=== PATIENT | female | born 1960 | race Caucasian/White ===

== ENCOUNTER → 2019-07-29 08:23 | Outpatient (BNVA) | payer OTHER, SELFPAY | PROVIDERS: Family Provider Registered Nurse; PCP Registered Nurse; Referring Provider Registered Nurse; Visit Provider Podiatrist Foot & Ankle Surgery | DX: M79.671 Pain in right foot (principal); M79.672 Pain in left foot; M77.8 Other enthesopathies, not elsewhere classified | CPT/HCPCS: 73620; 73630 ==

== ENCOUNTER 2019-08-05 06:55 | Outpatient (CLI) | payer OTHER, SELFPAY ==
--- NOTE | 2019-08-05 07:15 | US_ITS ---
WS: [id number] US soft tissue/extremity [id number] REASON FOR EXAM: Rule out mortons neuroma 3rd intermetatarsal space, right FINDINGS: In the area of the third interspace there is a nodular density in the subcutaneous area wilbur n neuroma is in the differential diagnosis versus plantar nodule. The remaining plantar surface of foot was normal. US/US soft tissue/extremity [id number] IMPRESSION: A density is seen with the third metatarsal tarsal area
== END 2019-08-05 06:56 | disposition home or self-care (01) ==
LOC: US 06:58
PROVIDERS: Family Provider Registered Nurse; PCP Registered Nurse; Visit Provider Podiatrist Foot & Ankle Surgery
DX: M79.671 Pain in right foot (principal)
CPT/HCPCS: 76882

== ENCOUNTER → 2019-09-04 09:04 | Outpatient (BNVA) | payer OTHER, SELFPAY | PROVIDERS: Family Provider Registered Nurse; PCP Registered Nurse; Visit Provider Otolaryngology | DX: R05 Cough (principal); J34.2 Deviated nasal septum; J34.3 Hypertrophy of nasal turbinates; J30.9 Allergic rhinitis, unspecified; R09.82 Postnasal drip; R49.0 Dysphonia | CPT/HCPCS: 96372; 99204; 99214; J3301 ==

== ENCOUNTER → 2020-09-06 10:51 | Outpatient (BNVA) | payer OTHER, SELFPAY | PROVIDERS: Family Provider Registered Nurse; PCP Registered Nurse; Visit Provider Internal Medicine Rheumatology | DX: M18.12 Unilateral primary osteoarthritis of first carpometacarpal joint, left hand (principal) | CPT/HCPCS: 20600; J1030 ==

== ENCOUNTER 2020-09-29 13:04 | Outpatient (CLI) | payer OTHER, SELFPAY ==
--- NOTE | 2020-09-29 13:00 | CT_ITS ---
WS: [id number] CT LUMBAR SPINE TECHNIQUE: Noncontrast CT of the lumbar spine with coronal and sagittal reformatted images. CLINICAL INFORMATION: Bilateral LBP with left leg numbness COMPARISON: None. DLP: All CT scans at [facility] use at least one of these dose optimization techniques: automat ed exposure control; mA and/or kV adjustment per patient size (includes targeted exams where dose is matched to clinical indication); or iterative reconstruction. FINDINGS: Mild lumbar curve. No acute compression. No high-grade central canal stenosis. Disc space narrowing w orse at L3-L4 and L4-L5 with end plate sclerosis and subchondral cystic change. No acute appearing co mpression fractures. Disc bulging worse at L3-L4 and L4-L5. L1-L2: Normal. L2-L3: Mild annular bulging with moderate central canal stenosis. Narrowing of the subarticular reces s bilaterally. Moderate facet arthropathy with ligamentum flavum hypertrophy. Mild bilateral left gre ater than right foraminal narrowing. L3-L4: Mild disc bulging with moderate to severe central canal stenosis. Moderate facet arthropathy l igamentum flavum hypertrophy. Right foraminal protrusion with moderate to severe right foraminal narr owing. Impingement on the exiting right L3 nerve root. Mild left foraminal narrowing. L4-L5: Mild disc bulging with severe central canal stenosis. Impingement traversing L5 nerve roots bi laterally. Moderate facet arthropathy and ligament flavum hypertrophy. Moderate to severe left and mo derate right foraminal narrowing. Impingement on the exiting L4 nerve roots bilaterally. L5-S1: Mild annular bulging with slight effacement of the ventral thecal sac. Spinal canal and forame n are patent. Adrenal glands are normal. Cholecystectomy clips. Visualized pelvic bony structures: Normal. Paravertebral soft tissues: Normal. CT/CT lumbar spine wo con* [id number] IMPRESSION: 1. Mild lumbar curve. No acute compression. Disc bulging worse at L3-L4 L4-L5. 2. Moderate to severe central canal stenosis L3-4 and severe central canal gaetano nosis L4-5 due to disc bulging with facet arthropathy and ligamentum flavum hyp ertrophy. 3. Moderate to severe right L3-L4 and bilateral L4-5 left greater than right f oraminal narrowing 4. Moderate central canal stenosis L1-2 due to disc bulging with facet arthrop athy and ligament flavum hypertrophy.
== END 2020-09-29 13:05 | disposition home or self-care (01) ==
PROVIDERS: PCP Family Medicine Adult Medicine; Visit Provider Family Medicine Adult Medicine
DX: M46.1 Sacroiliitis, not elsewhere classified (principal); M19.90 Unspecified osteoarthritis, unspecified site; R20.0 Anesthesia of skin
CPT/HCPCS: 72131

== ENCOUNTER → 2020-10-04 08:30 | Outpatient (BNVA) | payer OTHER, SELFPAY | PROVIDERS: PCP Family Medicine Adult Medicine; Referring Provider Family Medicine Adult Medicine; Visit Provider Orthopaedic Surgery | DX: M48.061 Spinal stenosis, lumbar region without neurogenic claudication (principal); M47.816 Spondylosis without myelopathy or radiculopathy, lumbar region; M43.16 Spondylolisthesis, lumbar region | CPT/HCPCS: 72110 ==

== ENCOUNTER 2020-10-04 09:16 | Outpatient (CLI) | payer OTHER, SELFPAY ==
[2020-10-04 09:43] LABS: Hematocrit 42.1 % (37.0-47.0); Hemoglobin 12.9 g/dL (11.5-15.3); Mean Corpuscular HGB Conc 30.6 g/dL (30.0-36.0); Mean Corpuscular Hemoglobin 26.8 pg (28.0-34.0); Mean Corpuscular Volume 87.3 fL (81-99); Mean Platelet Volume 10.1 fL (7.4-10.4); Platelet Count 284 10^3/cmm (130-400); Red Blood Count 4.82 10^6/uL (4.1-5.3); White Blood Count 3.8 10^3/uL (4.0-10.0)
[2020-10-04 10:48] LABS: Erythrocyte Sedimentation Rate 11 mm/hr (0-15)
[2020-10-04 12:45] LABS: Total Cells Counted 100 (0-100)
[2020-10-04 12:49] LABS: Absolute Segmented Neutrophil 2.2 10/cmm (1.6-7.1); Segmented Neutrophils 57 %
[2020-10-04 12:50] LABS: Absolute Eosinophils 0.3 10^3/cmm (0.0-0.7); Absolute Neutrophil 2.2 10^3/cmm (1.4-6.5); Eosinophils 8 %; Lymphocytes 28 %; Lymphocytes Absolute 1.1 10^3/cmm (1.2-3.4); Monocytes Absolute 0.2 10^3/cmm (0.1-0.6); Platelet Estimate Normal (Normal)
== END 2020-10-04 09:17 | disposition home or self-care (01) ==
PROVIDERS: PCP Family Medicine Adult Medicine; Visit Provider Orthopaedic Surgery
DX: M48.061 Spinal stenosis, lumbar region without neurogenic claudication (principal); M46.40 Discitis, unspecified, site unspecified
CPT/HCPCS: 85007; 85027; 85651; 87040

== ENCOUNTER 2020-10-06 13:19 | Outpatient (CLI) | payer OTHER, SELFPAY ==
--- NOTE | 2020-10-06 13:45 | MR_ITS ---
WS: [id number] MRI LUMBAR SPINE NONCONTRAST TECHNIQUE: Sagittal T1, T2 and STIR imaging. Axial T1 and T2 imaging. CLINICAL INFORMATION: M48.061 - Spinal stenosis, lumbar region without neurogenic claudication COMPARISON: CT lumbar September 29, 2020 FINDINGS: Mild lumbar curve. No acute compression. Degenerative disease worse at L3-L4 and L4-L5. Disc desiccat ion at L4-5 with endplate degenerative changes and endplate edema. Subchondral endplate erosions at L 4-5 as seen on the recent CT. Findings can be seen with advanced degenerative changes as well as disc itis. Recommend correlation for infection. No evidence of paravertebral edema or epidural abscess. Se giancarlo central canal stenosis L4-5 due to disc bulging with facet arthropathy and ligamentum flavum hyp ertrophy. L1-L2: Normal. L2-L3: Mild disc bulging with mild central canal stenosis. Impingement on the right greater than left subarticular recess. Mild facet arthropathy. Foramen are patent. L3-L4: Right eccentric disc bulging impinges the traversing right L4 nerve root and exiting right L3 nerve root with moderate right foraminal narrowing. Left foramen is patent. Moderate central canal st enosis. Moderate facet arthropathy with ligamentum flavum hypertrophy. L4-L5: Disc desiccation with endplate edema and endplate degenerative changes described above. Disc b ulging results in severe central canal stenosis with moderate facet arthropathy and ligamentum flavum hypertrophy. Impingement on the traversing left L5 nerve root. Moderate left and mild right foramina l narrowing. L5-S1: Minimal annular bulging with osteophytic ridging. Spinal canal and foramen are patent. Mild fa cet arthropathy. Small right renal cyst. MR/MR lumbar spine wo con* [id number] IMPRESSION: 1. Mild lumbar curve. No acute compression. 2. Disc desiccation L4-5 with endplate edema and subchondral cystic changes. F indings most likely due to advanced degenerative disc disease but can also be s een with discitis. Recommend correlation for infection. No paravertebral edema or paravertebral abscess. 3. Severe central canal stenosis L4-5 due to disc bulging with facet arthropat hy and ligamentum flavum hypertrophy. Impingement traversing left L5 nerve root . 4. Mild central canal stenosis L2-3 and moderate central canal stenosis L3-4. 5. Mild to moderate bony foraminal narrowing worse at right L3-4 and left L4-5 .
== END 2020-10-06 13:20 | disposition home or self-care (01) ==
PROVIDERS: PCP Family Medicine Adult Medicine; Visit Provider Orthopaedic Surgery
DX: M48.061 Spinal stenosis, lumbar region without neurogenic claudication (principal)
CPT/HCPCS: 72148

== ENCOUNTER → 2020-10-19 08:20 | Outpatient (BNVA) | payer OTHER, SELFPAY | PROVIDERS: PCP Family Medicine Adult Medicine; Visit Provider Orthopaedic Surgery | DX: Z20.822 Contact with and (suspected) exposure to COVID-19 (principal) | CPT/HCPCS: 87635 ==

== ENCOUNTER 2020-10-24 05:50 | Day surgery (SDC) | payer OTHER, SELFPAY ==
[2020-10-21 14:10] VITALS: BMI 26.5
[2020-10-24] VITALS (12 sets, daily range): BP systolic 127–170; BP diastolic 64–104; PULSE 61–78; RESP 14–20; TEMP 36.5–37.1; O2SAT 93–100
--- NOTE | 2020-10-24 | XR_ITS ---
WS: [id number] C-ARM RADIOGRAPHS LUMBAR SPINE; 6 IMAGES HISTORY: ASPEN SINJarett COMPARISON: 10/04/2020 Intraoperative imaging during spinal decompression. Multiple images are submitted with localizing dev ices over the lumbar spine. XR/XR lumbar spine 1V port [id number] IMPRESSION: Intraoperative imaging during posterior lumbar decompression.
--- NOTE | 2020-10-24 | SCC_ITS ---
Procedure Done: 1. L2/3 laminectomy with partial facetectomy 2. L3/4 laminectomy with partial facetectomy 3. L4/5 laminectomy with partial facetectomy 43.4 seconds of fluoroscopic guidance, for a cumulative dose of 11.81 mGy, was provided to Dr. Zhou by the radiology department. C-arm images of the lumbar spine were saved for the patient's permanent record. [facility], [place]
[2020-10-24] MEDS: sodium chloride 0.9% 1,000 ML 30 ML IV (06:25)
--- NOTE | 2020-10-24 06:38 | W.PM.OPSUD ---
Surgery/Procedure H&P Update DATE OF PROCEDURE: October 24, 2020 DATE H&P PERFORMED: 10/11/20 PLANNED PROCEDURE: Operation Date: 10/24/20 07:00 Proposed Procedures p Lumbar Spine Decompression [id number] M48.061(Not Applicable) - Jakob Zhou DO
--- NOTE | 2020-10-24 06:41 | ANES.PREANE2 ---
Pre-Anesthetic Assessment Pre-Anesthetic Assessment: Height/Weight: Height 1.6 m Weight 68.039 kg Temp Pulse Resp BP Pulse Ox 97.9 F 66 18 127/64 96 10/24/20 06:04 10/24/20 06:04 10/24/20 06:04 10/24/20 06:04 10/24/20 06:04 Preop Diagnosis: back pain Proposed Procedure: Operation Date: 10/24/20 07:00 Proposed Procedures p Lumbar Spine Decompression 27592 [id number] M48.061(Not Applicable) - Jakob Zhou DO Familial anesthetic complications: PONV (sometimes) Was Beta Ilda taken within 24 hours: N/A Was Clonidine taken within 24 hours: N/A Last intake: Intake Last Liquid Date 10/23/20 Last Solid Date 10/23/20 Social: Social History: No alcohol and No tobacco Exam: Pre-Anes Outpt Exam: alert, oriented x 3, clear to auscultation bilaterally and regular rate & rhythm Airway: Cervical ROM: WNL MP: 2 Dentition: Full GI: GI: GERD Metabolic: Metabolic: Thyroid Anesthetic Plan: ASA status: 2 Anesthesia: General Risk of > 500 ml blood loss (7ml/kg in children): No Meds/Allergies Current Medications: Current Medications Generic Name Dose Route Start Last Admin Trade Name Freq PRN Reason Stop Dose Admin Sodium Chloride 1,000 mls @ 30 ml s/hr 10/24/20 06:00 10/24/20 06:25 Sodium Chloride 0.9% IV 10/25/20 05:59 30 mls/hr .Q24H ES Administration PFSH Anesthesia PFSH: Medical History Allergic rhinitis Anxiety Cough Dysphonia History of cataract Hypothyroidism (acquired) Left leg numbness Nasal septal deformity Nasal turbinate hypertrophy Plantar fibromatosis Postnasal Drip Sacroiliitis Spinal stenosis of lumbar region at multiple levels Surgical History History of bilateral carpal tunnel release History of cholecystectomy History of hysterectomy Family History Other Cancer Chronic kidney disease (CKD) Hypertension Kidney problem Social History Smoking and tobacco status: never smoked Alcohol intake: current Alcohol intake frequency: holidays/special occasions only Household members: spouse Marital status: Current occupational status: employed Current occupation: [employer] employee health Data Anesthesia Cardiac Studies: Holter Monitor 07/14/19
--- NOTE | 2020-10-24 09:15 | P.OP_ITS ---
Operative Report Date of procedure: October 24, 2020 Pre-op Diagnosis: lumbar stenosis with neurogenic claudication Post-op diagnosis: same Procedure Done: 1. L2/3 laminectomy with partial facetectomy 2. L3/4 laminectomy with partial facetectomy 3. L4/5 laminectomy with partial facetectomy Surgeon: Jakob Zhou [employer]ing Machine Operator: Jakob Zhou Anesthesia: General Estimated blood loss (mL): 5 Condition: stable Disposition: PACU Procedure: 1. L2/3 laminectomy with partial facetectomy 2. L3/4 laminectomy with partial facetectomy 3. L4/5 laminectomy with partial facetectomy Patient is brought to the operative suite. After undergoing anesthesia they are placed in the supine position. All areas of impingement are well padded. Patient is then prepped and draped in the normal sterile fashion. A skin incision is made over the L4/5 level. This is confirmed under c-arm guidance. A series of dilators are passed and the tubular retractor is docked on the L4 lamina. A bovie is used to clear the soft tissue off the lamina and the L 4/5 facet joint. A high speed faheem is then used to perform the laminectomy and take down the medial aspect of the L 4/5 facet joint. A kerrison rongeure was then used to take down the remaining lamina and smooth the edge of the laminectomy up to the point where the ligamentum flavum attaches. Attention was then brought to the medial aspect of the facet joint. The remaining medial aspect of the superior and inferior aspect of the facet joint were taken down with the kerrison from the pedicle of L4 to L 5. The facet joint had significant hypertrophy. Attention was then brought to the Ligamentum Flavum. The ligament was taken down from the lamina of L4 to L5 and out medially to the remaining facet joint. The ligament was thick. The dura was then exposed. The dura was in good repair. The L4 nerve was then traced with a curette out the L4/5 foramen and found to be adequately decompressed. The L5 nerve was traced with a curette around the L5 pedicle. The lateral recess was opened with a kerrison helping to further decompress the L5 nerve. Wound is then irrigated copiously with saline and surgiflo is used to stop any bleeding. The tubular retractor is removed A skin incision is made over the L3/4 level. This is confirmed under c-arm guidance. A series of dilators are passed and the tubular retractor is docked on the L3 lamina. A bovie is used to clear the soft tissue off the lamina and the L 3/4 facet joint. A high speed faheem is then used to perform the laminectomy and take down the medial aspect of the L 3/4 facet joint. A kerrison rongeure was then used to take down the remaining lamina and smooth the edge of the laminectomy up to the point where the ligamentum flavum attaches. Attention was then brought to the medial aspect of the facet joint. The remaining medial aspect of the superior and inferior aspect of the facet joint were taken down with the kerrison from the pedicle of L3 to L 4. The facet joint had significant hypertrophy. Attention was then brought to the Ligamentum Flavum. The ligament was taken down from the lamina of L3 to L4 and out medially to the remaining facet joint. The ligament was thick. The dura was then exposed. The dura was in good repair. The L4 nerve was then traced with a curette out the L3/4 foramen and found to be adequately decompressed. The L4 nerve was traced with a curette around the L4 pedicle. The lateral recess was opened with a kerrison helping to further decompress the L4 nerve. Wound is then irrigated copiously with saline and surgiflo is used to stop any bleeding. The tubular retractor is removed A skin incision was extended up over the L2/3 level. This is confirmed under c- arm guidance. A series of dilators are passed and the tubular retractor is docked on the L2 lamina. A bovie is used to clear the soft tissue off the lamina and the L 2/3 facet joint. A high speed faheem is then used to perform the laminectomy and take down the medial aspect of the L 2/3 facet joint. A kerrison rongeure was then used to take down the remaining lamina and smooth the edge of the laminectomy up to the point where the ligamentum flavum attaches. Attention was then brought to the medial aspect of the facet joint. The remaining medial aspect of the superior and inferior aspect of the facet joint were taken down with the kerrison from the pedicle of L2 to L 3. The facet joint had significant hypertrophy. Attention was then brought to the Ligamentum Flavum. The ligament was taken down from the lamina of L2 to L3 and out medially to the remaining facet joint. The ligament was thick. The dura was then exposed. The dura was in good repair. The L2 nerve was then traced with a curette out the L2/3 foramen and found to be adequately decompressed. The L3 nerve was traced with a curette around the L3 pedicle. The lateral recess was opened with a kerrison helping to further decompress the L3 nerve. Wound is then irrigated copiously with saline and surgiflo is used to stop any bleeding. The tubular retractor is removed and the 2 wounds are closed with vicryl and monocryl suture. Glue is then used to protect the wound. A sterile dressing is then placed. Patient was then placed in the supine position and transferred to the PACU in stable condition.
[2020-10-24] MEDS: fentaNYL 50 mcg/mL INJ 2mL IVP (09:21)
[2020-10-24] MEDS: morphine 4 mg/mL SDV 1 mL IVP (09:51)
[2020-10-24] MEDS: ondansetron 2 mg/ML SDV 2 mL 4 MG IVP (09:55)
[2020-10-24] MEDS: HYDROcodone-acetaminophen 5-325 mg Tablet 1 TAB PO (11:03)
--- NOTE | 2020-10-24 15:44 | ANE.PACU2 ---
Inpatient post-anesthesia follow up: Airway intact: Yes Vital signs: Temperature 98.8 F Pulse Rate 72 Respiratory Rate 14 Blood Pressure 154/87 Pulse Oximetry 97 Oxygen Delivery Me thod Room Air Oxygen Flow Rate 6 Fraction of Inspir ed Oxygen Hydration adequate: Yes Nausea and vomiting: No Pain level: 2 Mental status: Baseline
--- NOTE | 2020-10-24 18:05 | PC.NURSE ---
2mg morphine wasted properly José Miguel Monae RN witness
== END 2020-10-24 11:44 | disposition home or self-care (01) ==
PROVIDERS: PCP Family Medicine Adult Medicine; Visit Provider Orthopaedic Surgery
PROC: (CPT 63005; principal; 2020-10-24 07:00)
DX: M48.062 Spinal stenosis, lumbar region with neurogenic claudication (principal); F41.9 Anxiety disorder, unspecified; E03.9 Hypothyroidism, unspecified
CPT/HCPCS: 63047; 63048 ×2; 72020; 76000; 87070; 87176; 87205; 96374; 96375; J0690; J1100; J2270; J2405; J2704; J3010; J3490; J7030

== ENCOUNTER 2020-12-15 11:45 | Outpatient (CLI) | payer OTHER, SELFPAY ==
--- NOTE | 2020-12-15 11:55 | MM_ITS ---
WS: [id number] BILATERAL SCREENING DIGITAL MAMMOGRAM WITH CAD HISTORY: SCREENING COMPARISON: 10/30/2019, 05/05/2019, 08/08/2018, 09/25/2017, 01/11/2015 Bilateral CC and MLO views submitted. Computer aided detection analyzed. Breast composition: The breasts are heterogeneously dense, which may obscure small masses. No suspici ous masses, microcalcifications or architectural distortion. Multiple scattered asymmetries and nodul es are noted within each breast. After reviewing multiple prior examinations these asymmetries have r emained stable. MM/[place] [id number] IMPRESSION: BI-RADS: 2-Benign FOLLOW UP: 1 Year Follow-up
== END 2020-12-15 11:46 | disposition home or self-care (01) ==
LOC: RADSHAW 11:48
PROVIDERS: PCP Family Medicine Adult Medicine; Visit Provider Family Medicine Adult Medicine
DX: Z12.31 Encounter for screening mammogram for malignant neoplasm of breast (principal)
CPT/HCPCS: 77067

== ENCOUNTER 2021-01-24 06:00 | Outpatient (RCR) | payer OTHER, SELFPAY | END 2021-02-14 23:59 | disposition home or self-care (01) | LOC: SPT 06:00 | PROVIDERS: PCP Family Medicine Adult Medicine; Referring Provider Orthopaedic Surgery; Visit Provider Orthopaedic Surgery | DX: M48.061 Spinal stenosis, lumbar region without neurogenic claudication (principal); M54.2 Cervicalgia | CPT/HCPCS: 81000; 97110; 97162 ==

== ENCOUNTER 2021-02-15 06:00 | Outpatient (RCR) | payer OTHER, SELFPAY | END 2021-03-16 23:59 | disposition home or self-care (01) | LOC: SPT 06:00 | PROVIDERS: PCP Family Medicine Adult Medicine; Referring Provider Orthopaedic Surgery; Visit Provider Orthopaedic Surgery | DX: M48.061 Spinal stenosis, lumbar region without neurogenic claudication (principal); M54.2 Cervicalgia | CPT/HCPCS: 97110 ==

== ENCOUNTER → 2021-05-04 14:16 | Outpatient (BNVA) | payer OTHER, SELFPAY | PROVIDERS: PCP Family Medicine Adult Medicine; Referring Provider Orthopaedic Surgery; Visit Provider Anesthesiology Pain Medicine | DX: M47.816 Spondylosis without myelopathy or radiculopathy, lumbar region (principal); M54.16 Radiculopathy, lumbar region; M19.90 Unspecified osteoarthritis, unspecified site; M79.605 Pain in left leg; Z79.891 Long term (current) use of opiate analgesic | CPT/HCPCS: 99204 ==

== ENCOUNTER → 2021-05-22 13:31 | Outpatient (BNVA) | payer OTHER, SELFPAY | PROVIDERS: PCP Family Medicine Adult Medicine; Visit Provider Anesthesiology Pain Medicine | DX: M54.16 Radiculopathy, lumbar region (principal); Z79.891 Long term (current) use of opiate analgesic | CPT/HCPCS: 64483; 64484; J1100; J3490 ==

== ENCOUNTER 2022-01-02 14:53 | Outpatient (CLI) | payer OTHER, SELFPAY ==
--- NOTE | 2022-01-02 15:01 | MM_ITS ---
WS: [id number] BILATERAL 3D TOMOSYNTHESIS DIGITAL SCREENING MAMMOGRAPHY WITH CAD CLINICAL INFORMATION: SCREENING HISTORY: Screening mammogram. No current complaints. COMPARISON: December 15, 2020 TECHNIQUE: Bilateral CC and MLO views. FINDINGS: Scattered fibroglandular densities bilaterally. Stable asymmetric densities and nodules bilateral keyla asts. A few incidental punctate calcifications. No suspicious focal mass, asymmetry, calcifications, or architectural distortion. No evidence of malignancy. MM/[place] [id number] IMPRESSION: BI-RADS: 2-Benign FOLLOW UP: 1 Year Follow-up Recommend return to annual screening mammography.
== END 2022-01-02 14:54 | disposition home or self-care (01) ==
LOC: RAD 14:54
PROVIDERS: PCP Family Medicine Adult Medicine; Visit Provider Family Medicine Adult Medicine
DX: Z12.31 Encounter for screening mammogram for malignant neoplasm of breast (principal)
CPT/HCPCS: 77063; 77067

== ENCOUNTER 2022-02-27 07:09 | Outpatient (CLI) | payer SELFPAY ==
[2022-02-27 07:28] LABS: HF Add Manual Diff No
[2022-02-27 07:34] LABS: Basophils # 0.1 10^3/uL (0.0-0.1); Basophils % 1.3 %; Eosinophils # 0.2 10^3/uL (0.0-0.8); Eosinophils % 4.9 %; Hematocrit 39.4 % (37.0-47.0); Hemoglobin 12.5 g/dL (11.5-15.3); Lymphocytes # 1.3 10^3/uL (0.8-4.8); Mean Corpuscular HGB Conc 31.7 g/dL (30.0-36.0); Mean Corpuscular Hemoglobin 26.9 pg (28.0-34.0); Mean Corpuscular Volume 84.9 fl (81-99); Mean Platelet Volume 10.2 fL (7.4-10.4); Monocytes # 0.4 10^3/uL (0.2-0.9); Neutrophils # 2.65 10^3/uL (1.8-7.7); Neutrophils % 56.6 %; Nucleated Red Blood Cells % 0 %; Platelet Count 266 10^3/cmm (130-400); Red Blood Count 4.64 10^6/uL (4.1-5.3); Red Cell Distribution Width 13.2 % (12.1-15.1); White Blood Count 4.7 10^3/uL (4.0-10.0)
[2022-02-27 07:52] LABS: Alanine Aminotransferase 19 U/L (0-33); Albumin Level 4.5 g/dL (3.5-5.2); Alkaline Phosphatase 71 U/L (35-105); Anion Gap 17.4 (5-19); Aspartate Amino Transferase 18 U/L (0-32); Blood Urea Nitrogen 16 mg/dL (8-23); Calcium 9.5 mg/dL (8.5-10.5); Carbon Dioxide 22 mmol/L (22-29); Chloride 101 mmol/L (98-107); Chol HDL Ratio 4.82 mg/dL (0.0-4.40); Cholesterol 294 mg/dL (0-200); Globulin 2.7 g/dL (1.3-4.6); Glomerular Filtration Rate 84.8 mL/min (90-130); Glucose 110 mg/dL (65-115); HDL Cholesterol 61 mg/dL (60-100); LDL Cholesterol Calculated 215 mg/dL (50-129); LDL HDL Ratio 3.52 RATIO (0.00-3.22); Osmolality Calculated 284 mOsm/kg (285-295); Potassium 4.4 mmol/L (3.5-5.1); Sodium 136 mmol/L (136-145); Total Bilirubin 0.3 mg/dL (0.15-1.2); Total Protein 7.2 g/dL (6.6-8.7); Triglycerides 91 mg/dL (0-150)
[2022-02-27 09:49] LABS: Estmated Average Glucose 114; Hemoglobin A1C 5.6 % (4.0-6.0)
== END 2022-02-27 07:10 | disposition home or self-care (01) ==
PROVIDERS: PCP Family Medicine Adult Medicine; Visit Provider Dermatology
DX: Z01.89 Encounter for other specified special examinations (principal)
CPT/HCPCS: 36415

== ENCOUNTER 2022-08-28 09:04 | Outpatient (CLI) | payer SELFPAY ==
[2022-08-28 09:31] LABS: HF Add Manual Diff No
[2022-08-28 09:37] LABS: Basophils # 0.1 10^3/uL (0.0-0.1); Basophils % 1.3 %; Eosinophils # 0.1 10^3/uL (0.0-0.8); Eosinophils % 2.3 %; Hemoglobin 11.8 g/dL (11.5-15.3); Mean Corpuscular HGB Conc 31.9 g/dL (30.0-36.0); Mean Corpuscular Hemoglobin 27.3 pg (28.0-34.0); Mean Corpuscular Volume 85.5 fl (81-99); Mean Platelet Volume 9.7 fL (7.4-10.4); Monocytes # 0.4 10^3/uL (0.2-0.9); Monocytes % 9.1 %; Neutrophils # 2.34 10^3/uL (1.8-7.7); Nucleated Red Blood Cells % 0 %; Platelet Count 284 10^3/cmm (130-400); Red Blood Count 4.33 10^6/uL (4.1-5.3); Red Cell Distribution Width 13.5 % (12.1-15.1); White Blood Count 3.8 10^3/uL (4.0-10.0)
[2022-08-28 10:02] LABS: Alanine Aminotransferase 15 U/L (0-33); Albumin Level 4.5 g/dL (3.5-5.2); Alkaline Phosphatase 67 U/L (35-105); Aspartate Amino Transferase 17 U/L (0-32); Blood Urea Nitrogen 10 mg/dL (8-23); Calcium 9.3 mg/dL (8.5-10.5); Carbon Dioxide 27 mmol/L (22-29); Chloride 105 mmol/L (98-107); Chol HDL Ratio 4.36 mg/dL (0.0-4.40); Cholesterol 205 mg/dL (0-200); Globulin 2.6 g/dL (1.3-4.6); Glucose 108 mg/dL (65-115); HDL Cholesterol 47 mg/dL (60-100); LDL Cholesterol Calculated 139 mg/dL (50-129); LDL HDL Ratio 2.96 RATIO (0.00-3.22); Osmolality Calculated 294 mOsm/kg (285-295); Sodium 142 mmol/L (136-145); Total Bilirubin 0.2 mg/dL (0.15-1.2); Total Protein 7.1 g/dL (6.6-8.7); Triglycerides 93 mg/dL (0-150)
[2022-08-28 10:10] LABS: Estmated Average Glucose 88; Hemoglobin A1C 4.7 % (4.0-6.0)
== END 2022-08-28 09:05 | disposition home or self-care (01) ==
LOC: LAB 09:07
PROVIDERS: PCP Family Medicine Adult Medicine; Visit Provider Dermatology
DX: Z01.89 Encounter for other specified special examinations (principal)
CPT/HCPCS: 36415

== ENCOUNTER 2023-01-04 13:12 | Outpatient (CLI) | payer OTHER, BC, SELFPAY ==
--- NOTE | 2023-01-04 13:27 | MM_ITS ---
WS: [id number] BILATERAL 3D TOMOSYNTHESIS DIGITAL SCREENING MAMMOGRAPHY WITH CAD CLINICAL INFORMATION: SCREENING HISTORY: Screening mammogram. No current complaints. COMPARISON: 2021 TECHNIQUE: Bilateral CC and MLO views. FINDINGS: The breasts are composed of heterogeneous fibroglandular density tissue, which can limit the detectio n of small underlying mass lesions. No suspicious mass, asymmetry, calcifications, or architectural d istortion. No evidence of malignancy. Incidental punctate calcifications. Stable asymmetric densities and nodules bilateral breasts. MM/[place] [id number] IMPRESSION: BI-RADS: 2-Benign FOLLOW UP: 1 Year Follow-up Recommend return to annual screening mammography.
== END 2023-01-04 13:13 | disposition home or self-care (01) ==
PROVIDERS: PCP Family Medicine Adult Medicine; Visit Provider Family Medicine Adult Medicine
DX: Z12.31 Encounter for screening mammogram for malignant neoplasm of breast (principal)
CPT/HCPCS: 77063; 77067

== ENCOUNTER 2024-05-12 08:13 | Outpatient (CLI) | payer BC, SELFPAY ==
--- NOTE | 2024-05-12 08:16 | MM_ITS ---
WS: [id number] BILATERAL 3D TOMOSYNTHESIS DIGITAL SCREENING MAMMOGRAPHY WITH CAD CLINICAL INFORMATION: SCREENING HISTORY: Screening mammogram. No current complaints. COMPARISON: 2022 TECHNIQUE: Bilateral CC and MLO views. FINDINGS: The breasts are composed of heterogeneous fibroglandular density tissue, which can limit the detectio n of small underlying mass lesions. No suspicious mass, asymmetry, calcifications, or architectural d istortion. No evidence of malignancy. Few incidental punctate calcifications.Stable nodular densities bilaterally. MM/MM [facility] tomosynthesis [id number] IMPRESSION: DENSITY: The breasts are heterogeneously dense, which may obscure small masses. BI-RADS: 2 - Benign FOLLOW UP: 1 Year Follow-up Recommend return to annual screening mammography.
== END 2024-05-12 08:14 | disposition home or self-care (01) ==
LOC: RAD 08:15
PROVIDERS: PCP Family Medicine Adult Medicine; Visit Provider Family Medicine Adult Medicine
DX: Z12.31 Encounter for screening mammogram for malignant neoplasm of breast (principal); R92.333 Mammographic heterogeneous density, bilateral breasts; R92.1 Mammographic calcification found on diagnostic imaging of breast
CPT/HCPCS: 77063; 77067